=== PATIENT | male | born 2000 | race Caucasian/White ===

== ENCOUNTER → 2020-06-01 | Outpatient (CLI) | payer OTHER | LOC: M LABSMTC 11:20 | PROVIDERS: ATTEND Internal Medicine Cardiovascular Disease | DX: Z11.52 Encounter for screening for COVID-19 (principal) ==

== ENCOUNTER → 2020-11-25 | Outpatient (REF) ==
--- NOTE | 2020-11-25 21:32 | REP ---
INDICATION: SOB COMPARISON: None. TECHNIQUE: PA and lateral. FINDINGS: The mediastinum and cardiac silhouette are normal. Loop recorder overlies the left cardiac silhouette. The lung hael are clear and without acute consolidation, effusion, or pneumothorax. The skeletal structures are intact and normal. IMPRESSION: No acute cardiopulmonary process. <Electronically signed by Tonny Telles > 11/25/20 2354
== END ==
LOC: M PLAIMG 13:16
PROVIDERS: ATTEND Internal Medicine
DX: R06.02 Shortness of breath (principal)